=== PATIENT | female | born 1965 | race Caucasian/White ===

== ENCOUNTER 2019-09-19 05:45 | Day surgery (SDC) | payer MEDICAID ==
[~2019-09-19] VITALS: Ht 152.4 cm; Wt 61.2 kg
[2019-09-19] MEDS ORDERED: fentaNYL 0.05 MG/ML VIAL ONE (07:38)
[2019-09-19] MEDS ORDERED: MIDAZOLAM 2 MG/2 ML VIAL ONE (07:38)
[2019-09-19] MEDS ORDERED: LIDOCAINE 2% 100 MG/5 ML UJET TP ONE (07:39)
[2019-09-19] MEDS ORDERED: MIDAZOLAM 2 MG/2 ML VIAL IVP ONE (09:45)
[2019-09-19] MEDS ORDERED: fentaNYL 0.05 MG/ML VIAL IVP ONE (09:45)
== END 2019-09-19 08:40 | disposition home or self-care (01) ==
LOC: MDS 05:45 → MMU 06:11 → MDS 08:40
PROVIDERS: ATTEND Internal Medicine Gastroenterology
DX: R14.0 Abdominal distension (gaseous) (principal); K21.9 Gastro-esophageal reflux disease without esophagitis; E66.3 Overweight; K59.00 Constipation, unspecified; Z79.899 Other long term (current) drug therapy
CPT/HCPCS: 43235; 45378; J2250; J3010